=== PATIENT | male | born 1955 | race American Indian/Alaskan Native ===

== ENCOUNTER 2024-12-16 18:54 | Emergency (ER) | payer MEDICARE, OTHER ==
[~2024-12-16] VITALS: Ht 165.1 cm; Wt 77.2 kg
[~2024-12-16 18:54] MED LIST: POTASSIUM99 M3 PO
[2024-12-16 20:07] LABS: BASOPHILS 0.7 % (0.1-1.2); EOSINOPHILS 0 % (0.7-7.0); LYMPHOCYTES 21.2 % (19.3-53.1); MCH 27.3 PG (25.6-32.2); MCHC 32.5 g/dL (32.2-36.5); MCV 84.1 fL (79.0-94.8); MONOCYTES 8.6 % (4.7-12.5); NEUTROPHILS 69.0 % (34.0-71.1); RBC 4.28 M/uL (3.93-6.08)
[2024-12-16 20:15] LABS: ALT (SGPT) 49 U/L (14-59); AST (SGOT) 96 U/L (15-37); PROTEIN, TOTAL 8.7 g/dL (6.4-8.2); UREA NITROGEN 1 mg/dL (7-18)
[2024-12-16] MEDS ORDERED: HYDROmorphone HCL 1 MG/ML SYR IV PRN (20:15)
[2024-12-16] MEDS ORDERED: TRAMADOL HCL50 MG PO (21:58)
[2024-12-16] MEDS ORDERED: ONDANSETRON 4 MG HOME.PACK SL ONE (22:00)
[2024-12-16] MEDS ORDERED: methylPREDNISolone 4 MG HOME.PACK PO ONE (22:00)
[2024-12-16] MEDS ORDERED: HYDROCODONE BIT/ACETAMINOPHEN 5/325 MG 1 TAB HOME.PACK PO ONE (22:00)
[2024-12-16 22:33] VITALS: BP 126/78
== END 2024-12-16 22:42 | disposition home or self-care (01) ==
LOC: ED 18:54 → EDSEX 18:55 → ED 18:55
PROVIDERS: Family Medicine
DX: M16.0 Bilateral primary osteoarthritis of hip (principal); Z79.899 Other long term (current) drug therapy
CPT/HCPCS: 36415; 73502; 80053; 83690; 85025; 96374; 96375; 96376; 99283-25; A9270; J1171; J2405